=== PATIENT | male | born 1985 ===

== ENCOUNTER 2017-10-30 16:48 | Emergency (ER) | payer SELFPAY ==
[2017-10-30] MEDS ORDERED: Pantoprazole IV* 40 MG IV ONE (17:48)
[2017-10-30] MEDS ORDERED: NS 0.9% 1000 ML* 1,000 ML IV ONE (17:48)
--- NOTE | 2017-10-30 17:48 | ED ---
Abdominal Pain/Male - HPI Summary HPI Summary: 32-year-old male presents with epigastric pain for a day. He states he is concerned he has an ulcer. He states his pain is better with food. He denies any blood in his stool. He denies any nausea or vomiting or diarrhea. He denies any pain with urination or flank pain. He describes the pain is an ache. He has had this pain before. He denies any fever. He denies any chest pain or shortness of breath. He hasn't tried anything for his pain. He is not on any medication. He does not have a primary. Patient states over the past month when eats spicy has burning sensation in abdomen. - History of Current Complaint Chief Complaint: EDAbdPain Stated Complaint: ABD PAIN Time Seen by Provider: 10/30/17 17:30 Pain Intensity: 6 - Allergies/Home Medications Allergies/Adverse Reactions: Allergies Allergy/AdvReac Type Severity Reaction Status Date / Time No Known Allergies Allergy Verified 10/30/17 18:26 PMH/Surg Hx/FS Hx/Imm Hx Endocrine/Hematology History: Denies: Hx Anticoagulant Therapy Cardiovascular History: Denies: Hx Myocardial Infarction Infectious Disease History: No Infectious Disease History: Denies: Traveled Outside the [place] in Last 30 Days - Family History Known Family History: Negative: Renal Disease Review of Systems Negative: Fever Negative: Chest Pain Negative: Shortness Of Breath Positive: Abdominal Pain. Negative: Vomiting, Diarrhea, Nausea All Other Systems Reviewed And Are Negative: Yes Physical Exam Triage Information Reviewed: Yes Vital Signs On Initial Exam: Initial Vitals Temp Pulse Resp BP Pulse Ox 98.7 F 99 18 131/73 96 10/30/17 17:02 10/30/17 17:02 10/30/17 17:02 10/30/17 17:02 10/30/17 17:02 Vital Signs Reviewed: Yes Appearance: Positive: Well-Appearing Skin: Positive: Warm, Dry Head/Face: Positive: Normal Head/Face Inspection Eyes: Positive: Normal, EOMI, GARY, Conjunctiva Clear ENT: Positive: Normal ENT inspection, Pharynx normal, TMs normal Respiratory/Lung Sounds: Positive: Clear to Auscultation, Breath Sounds Present Cardiovascular: Positive: Normal, RRR Abdomen Description: Positive: Soft, Other: - mild epigastric tenderness Bowel Sounds: Positive: Present Musculoskeletal: Positive: Normal Neurological: Positive: Normal Psychiatric: Positive: Normal Diagnostics - Vital Signs Vital Signs Temp Pulse Resp BP Pulse Ox 10/30/17 17:02 98.7 F 99 18 131/73 96 - Laboratory Result Diagrams: 10/30/17 17:45 10/30/17 17:45 Lab Statement: Any lab studies that have been ordered have been reviewed, and results considered in the medical decision making process. - Ultrasound No standard instances Ultrasound Interpretation: No Acute Changes Ultrasound Interpretation Completed By: Radiologist - EKG No standard instances Cardiac Rate: NL EKG Rhythm: Sinus Rhythm EKG Interpretation: sinus rhythm, early repolarization Abdominal Pain Fem Course/Dx - Course Course Of Treatment: Sleep 32-year-old male presents with epigastric pain for a day. He states he is concerned he has an ulcer. He states his pain is better with food. He denies any blood in his stool. He denies any nausea or vomiting or diarrhea. He denies any pain with urination or flank pain. He describes the pain is an ache. He has had this pain before. He denies any fever. He denies any chest pain or shortness of breath. He hasn't tried anything for his pain. He is not on any medication. He does not have a primary. On exam tender in the epigastric region. Negative Jorge's. No rebound. Lungs clear to auscultation. Heart RRR. ekg sinus rhythm, early repolarization. Labs white blood cell and CRP normal. EKG normal. Troponin negative. Potassium low at 3.2. Ultrasound normal. patient given GI cocktail and patient's pain resolved. We will treat with Maalox and omeprazole. Will have established primary for follow-up. will give the referral physician GI if no improvement on medication. Patient understands and agrees with plan. - Diagnoses Differential Diagnosis/HQI/PQRI: Gall Bladder Disease, Peptic Ulcer Disease, Other - GERD Provider Diagnoses: Abdominal pain Discharge - Discharge Plan Condition: Good Disposition: HOME Prescriptions: Al Hydrox/Mg Hydrox/Simet LIQ* [Maalox Plus*] 30 ml PO Q6H PRN #1 bottle PRN Reason: Dyspepsia Omeprazole CAP* [Prilosec CAP* 20 MG] 20 mg PO DAILY #21 cap Patient Education Materials: Diet for Stomach Ulcers and Gastritis (ED), Gastroesophageal Reflux Disease (ED) Print Language: MALAY Referrals: [facility] [place] [facility] REFERRAL [Outside] Ankush Calles MD [Medical Doctor] - Additional Instructions: Establish care with primary Follow up with GI if no improvement with medication prescribed Take a omeprazole once a day in the morning Take Maalox 30 mL every 6 hours for abdominal pain as needed Avoid spicy food Elevate head of bed Return to ED if develop any new or worsening symptoms
[2017-10-30 17:57] LABS: ABS Basophils 0 10^3/ul (0-0.2); ABS Eosinophils 0 10^3/ul (0-0.6); ABS Lymphocytes 1.8 10^3/ul (1.0-4.8); ABS Monocytes 0.6 10^3/ul (0-0.8); ABS Neutrophils 5.9 10^3/ul (1.5-7.7); ABS Nucleated RBC 0 10^3/ul; Eosinophil % 0.2 % (0-6); Hematocrit 41 % (42-52); Hemoglobin 14.2 g/dl (14.0-18.0); Lymphocyte % 21.5 % (25-47); Mean Corpuscular HGB Conc 34 g/dl (31-36); Mean Corpuscular Hemoglobin 30 pg (27-31); Mean Corpuscular Volume 88 fL (80-94); Mean Platelet Volume 9 um3 (7.4-10.4); Nucleated Red Blood Cells % 0.1; Platelet Count 205 10^3/ul (150-450); Red Cell Distribution Width 14 % (10.5-15); White Blood Count 8.3 10^3/ul (3.5-10.8)
[2017-10-30 18:12] LABS: EGFR Non-African American 124.5 (>60)
--- NOTE | 2017-10-30 18:31 | RAD ---
INDICATION: Epigastric pain. COMPARISON: There are no prior studies available for comparison. TECHNIQUE: Multiple real-time images of the right upper quadrant were obtained. FINDINGS: The gallbladder appear normal. No gallbladder wall thickening or pericholecystic fluid is present. No intra or extrahepatic ductal distention is present. The common bile duct measured 0.4 cm in diameter. The liver is normal in size without significant focal abnormality. The pancreas is partially obscured by overlying bowel gas. The right kidney is normal in size without evidence for hydronephrosis. IMPRESSION: NEGATIVE EXAM.
[2017-10-30] MEDS ORDERED: Lidocaine 2% VISCOUS* 15 ML UDC PO ONE (18:33)
[2017-10-30] MEDS ORDERED: Potassium Chlor TAB* 20 MEQ TAB.ER PO ONE (18:33)
[2017-10-30] MEDS ORDERED: Al Hydrox/Mg Hydrox/Simet LIQ* 30 ML UDC PO ONE (18:33)
[2017-10-30 18:56] LABS: Urine Appearance Clear; Urine Blood Negative (Negative); Urine Color Yellow; Urine Ketones Negative (Negative); Urine Protein Negative (Negative); Urine Specific Gravity 1.012 (1.010-1.030); Urine Urobilinogen Negative (Negative)
[2017-10-30 19:24] VITALS: BP 117/79
== END 2017-10-30 19:24 | disposition home or self-care (01) ==
LOC: ED 16:48
DX: R10.13 Epigastric pain (principal)
CPT/HCPCS: 36415; 76705; 80053; 81003; 83690; 84484; 85025; 86141; 93005; 96374; 99283; A9270-GY

== ENCOUNTER 2017-11-12 23:00 | Emergency (ER) | payer SELFPAY ==
[2017-11-12] MEDS ORDERED: Morphine INJ* 4 MG/ML 1 ML CARPUJECT IV ONE (23:32)
[2017-11-12] MEDS ORDERED: NS 0.9% 1000 ML* 1,000 ML IV ONE (23:33)
[2017-11-12] MEDS ORDERED: Metoclopramide IV* 5 MG/ML 2 ML VIAL IV SLOW PU ONE (23:33)
[2017-11-12] MEDS ORDERED: Morphine INJ* 4 MG/ML 1 ML SYRINGE (NEW SYRINGE VERSION) ONE (23:44)
[2017-11-13 00:25] LABS: EGFR Non-African American 124.5 (>60)
[2017-11-13 00:35] LABS: ABS Basophils 0 10^3/ul (0-0.2); ABS Eosinophils 0.1 10^3/ul (0-0.6); ABS Lymphocytes 2.8 10^3/ul (1.0-4.8); ABS Monocytes 0.7 10^3/ul (0-0.8); ABS Neutrophils 4.5 10^3/ul (1.5-7.7); ABS Nucleated RBC 0 10^3/ul; Eosinophil % 1.8 % (0-6); Hematocrit 43 % (42-52); Hemoglobin 14.9 g/dl (14.0-18.0); Lymphocyte % 34.4 % (25-47); Mean Corpuscular HGB Conc 35 g/dl (31-36); Mean Corpuscular Hemoglobin 31 pg (27-31); Mean Corpuscular Volume 88 fL (80-94); Mean Platelet Volume 9 um3 (7.4-10.4); Nucleated Red Blood Cells % 0; Platelet Count 214 10^3/ul (150-450); Red Blood Count 4.89 10^6/ul (4.0-5.4); Red Cell Distribution Width 14 % (10.5-15); White Blood Count 8.1 10^3/ul (3.5-10.8)
[2017-11-13] MEDS ORDERED: Iohexol 300* (CONTRAST) 10 ML SDV IV ONE (01:03)
[2017-11-13 01:49] LABS: Urine Appearance Clear; Urine Blood Negative (Negative); Urine Color Colorless; Urine Ketones Negative (Negative); Urine Protein Negative (Negative); Urine Specific Gravity 1.002 (1.010-1.030); Urine Urobilinogen Negative (Negative)
--- NOTE | 2017-11-13 02:30 | ED ---
Peg Kellogg Abhishek, scribed for Kaveh Callahan MD on 11/13/17 at 0143 . Abdominal Pain/Male - HPI Summary HPI Summary: This patient is a 32 year old M presenting to [facility] with a chief complaint of abd pain since one month ago. The pt describes the abd pain as a RUQ and LUQ abd pain. Pt was previously seen in the [facility] one month prior. The patient rates the pain 10/10 in severity. Symptoms aggravated by palpation. Symptoms alleviated by nothing. Patient reports vomiting. - History of Current Complaint Chief Complaint: EDAbdPain Stated Complaint: ABD PAIN Time Seen by Provider: 11/12/17 23:21 Hx Obtained From: Patient Onset/Duration: Lasting Weeks - one month ago Timing: Lasting Weeks - one month ago Severity Initially: Severe Severity Currently: Severe Pain Intensity: 10 Pain Scale Used: 0-10 Numeric Location: Discrete At: RUQ, Discrete At: LUQ Aggravating Factor(s): Other: - palpation Alleviating Factor(s): Nothing Associated Signs And Symptoms: Positive: Negative - Allergies/Home Medications Allergies/Adverse Reactions: Allergies Allergy/AdvReac Type Severity Reaction Status Date / Time No Known Allergies Allergy Verified 11/12/17 23:08 PMH/Surg Hx/FS Hx/Imm Hx Endocrine/Hematology History: Denies: Hx Anticoagulant Therapy, Hx Diabetes Cardiovascular History: Denies: Hx Hypertension, Hx Myocardial Infarction History: Denies: Hx Renal Disease Infectious Disease History: No Infectious Disease History: Denies: Traveled Outside the [place] in Last 30 Days - Family History Known Family History: Negative: Cardiac Disease, Diabetes, Renal Disease - Social History Occupation: Employed Full-time Alcohol Use: Rare Substance Use Type: Reports: None Smoking Status (MU): Never Smoked Tobacco Review of Systems Constitutional: Negative Eyes: Negative ENT: Negative Cardiovascular: Negative Respiratory: Negative Positive: Abdominal Pain - RUQ; LUQ, Vomiting Genitourinary: Negative Musculoskeletal: Negative Skin: Negative Neurological: Negative Psychological: Normal All Other Systems Reviewed And Are Negative: Yes Physical Exam - Summary Physical Exam Summary: VITAL SIGNS: Reviewed. GENERAL: ~Patient is a well-developed and nourished (MALE) who is lying comfortable in the stretcher. Patient is not in any acute respiratory distress. HEAD AND FACE: No signs of trauma. No ecchymosis, hematomas or skull depressions. No sinus tenderness. EYES: PERRLA, EOMI x 2, No injected conjunctiva, no nystagmus. EARS: Hearing grossly intact. Ear canals and tympanic membranes are within normal limits. MOUTH: Oropharynx within normal limits. NECK: Supple, trachea is midline, no adenopathy, no JVD, no carotid bruit, no c- spine tenderness, neck with full ROM. CHEST: Symmetric, no tenderness at palpation LUNGS: Clear to auscultation bilaterally. No wheezing or crackles. CVS: Regular rate and rhythm, S1 and S2 present, no murmurs or gallops appreciated. ABDOMEN: Right upper quadrant tenderness . No signs of distention. No rebound no guarding, and no masses palpated. Bowel sounds are normal. EXTREMITIES: FROM in all major joints, no edema, no cyanosis or clubbing. NEURO: Alert and oriented x 3. No acute neurological deficits. Speech is normal and follows commands. SKIN: Dry and warm Triage Information Reviewed: Yes Vital Signs On Initial Exam: Initial Vitals Temp Pulse Resp BP Pulse Ox 98.1 F 67 16 146/98 97 11/12/17 23:05 11/12/17 23:05 11/12/17 23:05 11/12/17 23:05 11/12/17 23:05 Vital Signs Reviewed: Yes Diagnostics - Vital Signs Vital Signs Temp Pulse Resp BP Pulse Ox 11/12/17 23:47 16 11/12/17 23:05 98.1 F 67 16 146/98 97 - Laboratory Lab Results: Lab Results 11/12/17 11/12/17 11/12/17 Range/Units 23:58 23:58 23:58 WBC 8.1 (3.5-10.8) 10^3/ul RBC 4.89 (4.0-5.4) 10^6/ul Hgb 14.9 (14.0-18.0) g/dl Hct 43 (42-52) % MCV 88 (80-94) fL MCH 31 (27-31) pg MCHC 35 (31-36) g/dl RDW 14 (10.5-15) % Plt Count 214 (150-450) 10^3/ul MPV 9 (7.4-10.4) um3 Neut % (Auto) 55.4 (38-83) % Lymph % (Auto) 34.4 (25-47) % Bath % (Auto) 8.0 (1-9) % Eos % (Auto) 1.8 (0-6) % Baso % (Auto) 0.4 (0-2) % Absolute Neuts (auto) 4.5 (1.5-7.7) 10^3/ul Absolute Lymphs (auto) 2.8 (1.0-4.8) 10^3/ul Absolute Monos (auto) 0.7 (0-0.8) 10^3/ul Absolute Eos (auto) 0.1 (0-0.6) 10^3/ul Absolute Basos (auto) 0 (0-0.2) 10^3/ul Absolute Nucleated RBC 0 10^3/ul Nucleated RBC % 0 Sodium 135 (133-145) mmol/L Potassium 3.5 (3.5-5.0) mmol/L Chloride 101 (101-111) mmol/L Carbon Dioxide 25 (22-32) mmol/L Anion Gap 9 (2-11) mmol/L BUN 12 (6-24) mg/dL Creatinine 0.73 (0.67-1.17) mg/dL Est GFR ( Amer) 160.1 (>60) Est GFR (Non-Af Amer) 124.5 (>60) BUN/Creatinine Ratio 16.4 (8-20) Glucose 110 H (70-100) mg/dL Lactic Acid 1.3 (0.5-2.0) mmol/L Calcium 9.6 (8.6-10.3) mg/dL Total Bilirubin 0.70 (0.2-1.0) mg/dL AST 26 (13-39) U/L ALT 62 H (7-52) U/L Alkaline Phosphatase 90 (34-104) U/L C-Reactive Protein 1.84 (< 5.00) mg/L Total Protein 7.8 (6.4-8.9) g/dL Albumin 4.3 (3.2-5.2) g/dL Globulin 3.5 (2-4) g/dL Albumin/Globulin Ratio 1.2 (1-3) Amylase 41 (29-103) U/L Lipase 37 (11.0-82.0) U/L Result Diagrams: 11/12/17 23:58 11/12/17 23:58 Lab Statement: Any lab studies that have been ordered have been reviewed, and results considered in the medical decision making process. - CT CT A/P CT Interpretation Completed By: Radiologist - CT A/P reveals no localizing signs for acute pathology as per radiologist. ED Physician has reviewed the radiology report and agrees. Abdominal Pain Fem Course/Dx - Course Course Of Treatment: The pt is a 32 M with a CC of abd pain. The pt was reporetedly in the [facility] one month ago with a similar chief complaint. According to the pt, the pain has been ongoing for about one month in the RUQ and LUQ regions. The pt recieved at CT A/P and will be dx with abd pain. The pt will be discharged home. - Diagnoses Provider Diagnoses: Abdominal pain Discharge - Discharge Plan Condition: Stable Disposition: HOME Patient Education Materials: Abdominal Pain (ED) Referrals: [facility] [place] [facility]IAN REFERRAL [Outside] (Follow up with PCP within 2 to 3 days.) No Primary Care Phys,NOPCP [Primary Care Provider] - Additional Instructions: RETURN TO THE EMERGENCY DEPARTMENT FOR CHANGING OR WORSENING SYMPTOMS. The documentation as recorded by the Peg ulna Abhishek accurately reflects the service I personally performed and the decisions made by , Kaveh Callahan MD.
[2017-11-13 02:39] VITALS: BP 134/79
--- NOTE | 2017-11-13 09:33 | RAD ---
Indication: Abdominal pain. Contrast: Administered 88.0 ml of OMNIPAQUE 300 mg/ml. CT of the abdomen and pelvis was performed after oral and IV contrast administration. Coronal and sagittal reconstructed images were obtained. The lung bases demonstrate no pleural fluid, nodules or masses. Heart is of normal size without evidence of pericardial effusion. The liver is normal in size. No focal lesions or intrahepatic duct dilatation is noted. The gallbladder demonstrates no calcified gallstones. No pericholecystic fluid or wall thickening is noted. The pancreas demonstrates no mass or pancreatic duct dilatation. The spleen is normal in size. No adrenal masses are noted. The kidneys demonstrate symmetric nephrograms without focal lesions. No hydronephrosis is noted. The ureters are unremarkable. No retroperitoneal lymphadenopathy is noted. CT of the pelvis demonstrates the prostate to be unremarkable. Urinary bladder demonstrates diffuse wall thickening, although it is partially collapsed. No dilated loops of bowel are noted. No hernias are noted. The appendix is visualized and is normal. No free fluid is identified. IMPRESSION: No abnormal masses or fluid collections are identified. Stool is present throughout the colon.
== END 2017-11-13 02:39 | disposition home or self-care (01) ==
LOC: ED 23:00
DX: R10.11 Right upper quadrant pain (principal); R10.12 Left upper quadrant pain; R11.10 Vomiting, unspecified
CPT/HCPCS: 36415; 74177; 80053; 81003; 82150; 83605; 83690; 85025; 86140; 96361; 96374; 96375; 99283; J2270; J2765; Q9967